=== PATIENT | female | born 1955 | race Caucasian/White ===

== ENCOUNTER → 2018-11-06 10:22 | Outpatient (CLI) | payer BC, SELFPAY ==
--- NOTE | 2018-11-06 10:30 | XR_ITS ---
EXAM: XR lumbar spine min 4V HISTORY: ITS.REASON: LOW BACK PAIN ORDERING PHYSICIAN: Genia Power PATIENT AGE: 63 years COMPARISON: 9 FINDINGS: There is mild lumbar scoliosis convex left measuring 13 degrees. Degenerative disc disease is present in the lower thoracic spine. No fracture or dislocation. No lytic or blastic change. There is facet arthritic change at L5-S1. IMPRESSION: Scoliosis with facet arthritic change at L5-S1 and degenerative disc disease in the lower thoracic spine
== END ==
PROVIDERS: PCP Nurse Practitioner Family; Visit Provider Nurse Practitioner Family
DX: M54.41 Lumbago with sciatica, right side (principal)
CPT/HCPCS: 72110

== ENCOUNTER → 2020-07-06 09:01 | Outpatient (CLI) | payer BC, SELFPAY ==
--- NOTE | 2020-07-06 09:08 | XR_ITS ---
PROCEDURE: XR LUMBAR SPINE MIN 4V CLINICAL INDICATION: SCOLIOSIS,LOW BACK PAIN COMPARISON: CR [id number] XR lumbar spine min 4V from 11/06/2018 FINDINGS: Mild dextroscoliosis. There is degenerative disc disease at T11-T12 and T12-L1 and L1-L2. Mild facet arthritic changes are present on the left at L5-S1. No acute fracture or dislocation. No lytic or blastic change. There is a metallic device overlying the midline of the pelvis inferiorly of unknown etiology. Please correlate with patient's surgical history Other findings:Overall no significant change 11/06/2018. IMPRESSION: Degenerative changes as described above, no acute finding Dictated by: Samuel Zambrano MD 07/06/2020 15:41 Samuel Zambrano MD in [place] 07/06/2020 15:41
== END ==
PROVIDERS: PCP Nurse Practitioner Family; Visit Provider Nurse Practitioner Family
DX: M54.41 Lumbago with sciatica, right side (principal)
CPT/HCPCS: 72110

== ENCOUNTER → 2021-07-18 08:10 | Outpatient (CLI) | payer BC, SELFPAY | PROVIDERS: Visit Provider Nurse Practitioner | DX: Z20.822 Contact with and (suspected) exposure to COVID-19 (principal) | CPT/HCPCS: C9803; U0003; U0005 ==

== ENCOUNTER 2022-02-08 16:45 | Emergency (ER) | payer BC, SELFPAY ==
[2022-02-08 16:55] VITALS: BP 141/88; PULSE 81; RESP 19; TEMP 36.6; O2SAT 98; BMI 16.2
[2022-02-08 17:15] VITALS: BP 141/88; PULSE 81; RESP 19; TEMP 36.6; O2SAT 98
--- NOTE | 2022-02-08 17:17 | HMH.EDUTC ---
[facility] [place] Disposition Clinical Impression: Viral syndrome, Exposure to COVID-19 virus Disposition: Home, Self-Care Condition on Discharge: Good Instructions: DI for Viral Syndrome, DI for COVID-19 (Suspected or Confirmed ), Preventing the Spread of Coronavirus Discharge Instructions Additional Instructions: Drink plenty of fluids. Take tylenol or ibuprofen for pain or fever. Take the medications as directed. Follow up with your regular doctor. GO TO THE ER FOR ANY WORSENING SYMPTOMS Prescriptions: Ondansetron [Zofran 4mg ODT] 4 mg PO Q8HP PRN #20 tab PRN Reason: Nausea Transmission Status: Received by [facility] # Benzonatate [Benzonatate 100mg cap] 100 mg PO TIDP PRN #30 cap PRN Reason: Cough Transmission Status: Received by [facility] # Referrals: Genia Powre APRN [Primary Care Provider] - Forms: Work/School Release Time of Disposition: 17:19 Medical Decision Making - Medical Records Medical records reviewed: No: I reviewed the patient's medical records. - [place] Inquiry Pt receiving controlled substance: No Vital Signs: 02/08/22 16:55 02/08/22 17:15 Temperature 97.8 F 97.8 F Temperature Source Oral Pulse Rate 81 Pulse Rate [Right Brachial] 81 Respiratory Rate 19 19 Blood Pressure 141/88 H Blood Pressure [Right Arm] 141/88 H Blood Pressure Mean [Right Arm] 105 Blood Pressure Source [Right Arm] Automatic Cuff Blood Pressure Position [Right Arm] Sitting 02 Sat by Pulse Oximetry 98 Oxygen Delivery Method Room Air Orders (Tests/Meds): ORDERS Category Date Time Status Covid-19 Nasal PCR ([facility]) Routine Lab 02/08/22 17:04 Received [facility] [place] HPI - General Stated complaint: covid test don't feel good Time Seen by Provider: 02/08/22 17:00 Mode of Arrival: Ambulatory Source of Information: Patient Limitations: No Limitations Description of Symptoms (Recalled from Triage Doc. by RN): PATIENT C/O SINUS PRESSURE X 2 DAYS. RECENTLY EXPOSED TO COVID HEENT Symptoms (Recalled from RN notes): Yes Resp Symptoms (Recalled from RN notes): No Skin Symptoms (Recalled from RN notes): No MS Symptoms (Recalled from RN notes): No Functional Status (Recalled from RN notes): WNL - History of Present Illness Provider Complaint: She states that she started to feel bad all of a sudden this morning. She has had body aches, chills, runny nose, nausea and she has felt bad. She denies fever but she has been at work and could not check her temp. She has been exposed to covid-19 by several of her coworkers having covid. - Related Data Previous Rx's Medication Instructions Recorded Benzonatate [Benzonatate 100mg 100 mg PO TIDP PRN #30 cap 02/08/22 cap] Ondansetron [Zofran 4mg ODT] 4 mg PO Q8HP PRN #20 tab 02/08/22 Allergies Allergy/AdvReac Type Severity Reaction Status Date / Time No Known Allergies Allergy Verified 02/08/22 17:11 - Worker's Comp Is this a Worker's Comp case?: No [facility] History - Hepatitis A Screen Attestation statement:: This patient has been screened for Hepatitis A risk factors. I have reviewed the patient's past medical history: Yes ROS Obtained: Yes All systems reviewed & no additional complaints - Constitutional Constitutional: Reports body ache, Reports chills, Denies fever(s), Reports poor appetite, Reports malaise - Eyes Eyes: Denies eye discharge - ENT Ears, Nose, Mouth, and Throat: Denies dizziness, Denies otalgia, Reports sore throat - Cardiovascular Cardiovascular: Denies chest pain - Respiratory Respiratory: Denies chest congestion, Reports cough, Denies dyspnea, Denies stridor, Denies wheezing - Gastrointestinal Gastrointestingal: Reports: nausea. Denies: abdominal pain, cramping, diarrhea, vomiting - Musculoskeletal Musculoskeletal: Denies joint pain - Integumentary/Breasts Skin/Breast: Denies rash Physical Exam - General General appearance: alert, in no appa
== END 2022-02-08 17:20 | disposition home or self-care (01) ==
PROVIDERS: Emergency Provider Nurse Practitioner Family; PCP Nurse Practitioner Family
DX: Z20.822 Contact with and (suspected) exposure to COVID-19 (principal); B34.9 Viral infection, unspecified; R09.89 Other specified symptoms and signs involving the circulatory and respiratory systems
CPT/HCPCS: 99212; C9803; G0463; U0003; U0005

== ENCOUNTER 2022-08-01 07:59 | Emergency (ER) | payer BC, SELFPAY ==
[2022-08-01 08:05] VITALS: BP 206/104; PULSE 88; RESP 18; TEMP 36.7; O2SAT 97; BMI 17.7
--- NOTE | 2022-08-01 08:26 | EXP.UTC ---
Discharge Plan Disposition Patient Disposition: Still a Patient Condition: Good Prescriptions Prescriptions: No Action benzonatate 100 MG capsule 100 mg PO TIDP PRN (Reason: Cough) Qty: 30 0RF ondansetron 4 MG tablet,disintegrating 4 mg PO Q8HP PRN (Reason: Nausea) Qty: 20 0RF Referrals Follow up/Referrals: Papa Wu MD [Staff Physician] - See instructions Provider,MD Koko [Primary Care Provider] - See instructions Clinical Impressions Clinical Impression: Hypertension Stand Alone Forms Stand Alone Forms: Work/School Release Instructions Patient Instructions: Essential Hypertension Discharge ED Provider: Dg Chandler [facility] HPI <Barbara Orr APRN - Last Filed: 08/01/22 20:35> General Chief complaint: Recheck/Abnormal Lab/Rx Stated complaint: High BP, Headache, lightheaded Time Seen by Provider: 08/01/22 08:26 History of Present Illness Provider Complaint: Patient states that she had High blood pressure years ago and it has been awhile since she was on medication for it State that she has hx of Retinal Detachment and has been having blurry vision in her right eye and they did lasik surgery on the eye yesterday and they found her blood pressure to be elevated State that she has been having headache and feeling light headed states that she went to work this morning and was not feeling well and still having headache and light headedness so they sent her home and told her she had to come to ER Related Data Previous Rx's Medication Instructions Recorded benzonatate 100 mg capsule 100 mg PO TIDP PRN Cough #30 caps 02/08/22 ondansetron 4 mg disintegrating 4 mg PO Q8HP PRN Nausea #20 tabs 02/08/22 tablet Allergies Allergy/AdvReac Type Severity Reaction Status Date / Time No Known Allergies Allergy Verified 02/08/22 17:11 [facility] <Barbara Orr APRN - Last Filed: 08/01/22 20:35> [facility] Disclaimer: The information contained in this section may have been updated after the patient was seen, as this information can be updated by other users. Medical History Detached retina Hypertension Surgical History H/O laser photocoagulation of retina Social History (Updated 08/01/22 @ 09:40 by Dg Chandler MD) Smoking Status: Unknown if ever smoked alcohol intake: never current occupational status: other Travel in the last 8 weeks: None <Barbara Orr APRN - Last Filed: 08/01/22 20:35> ROS Obtained: Yes All systems reviewed & no additional complaints except as documented and Yes Systems reviewed as appropriate & no additional complaints except as documented Constitutional Constitutional: Reports system reviewed and no additional complaints, except as documented, Reports as per HPI and Reports headache(s) Eyes Eyes: Reports system reviewed and no additional complaints, except as documented and Reports as per HPI ENT Ears, Nose, Mouth, and Throat: Reports system reviewed and no additional complaints, except as documented, Reports as per HPI and Reports headache(s) Cardiovascular Cardiovascular: Reports system reviewed and no additional complaints, except as documented, Reports as per HPI and Denies chest pain Neurologic Neurologic: Reports system reviewed and no additional complaints, except as documented, Reports as per HPI, Reports headache(s) and Reports other (light headedness on and off) Physical Exam <Barbara Orr APRN - Last Filed: 08/01/22 20:35> General General appearance: alert and in no apparent distress Respiratory Respiratory exam: Present normal lung sounds bilaterally; Absent respiratory distress Cardiovascular Cardiovascular exam: Present regular rate, normal rhythm and normal heart sounds Neurological Exam Neurological exam: Present alert, oriented X3 and normal gait Medical Decision Making <Barbara Orr APRN - Last Filed: 08/01/22 20:35> [facility]
--- NOTE | 2022-08-01 08:31 | PC.NURSE ---
PATIENT SENT TO ER PER Lily TAVAREZ APRN FOR FURTHER EVALUATION. REPORT GIVEN TO Isis JARAMILLO RN
[2022-08-01 08:38] VITALS: BP 187/102; PULSE 87; RESP 17; TEMP 36.7; O2SAT 97; BMI 17.4
--- NOTE | 2022-08-01 08:43 | PC.NURSE ---
DR HUDSON AT BEDSIDE
--- NOTE | 2022-08-01 08:47 | HMH.EDGENADL ---
Discharge Plan Disposition Patient Disposition: Still a Patient Condition: Good Prescriptions Prescriptions: No Action benzonatate 100 MG capsule 100 mg PO TIDP PRN (Reason: Cough) Qty: 30 0RF ondansetron 4 MG tablet,disintegrating 4 mg PO Q8HP PRN (Reason: Nausea) Qty: 20 0RF Referrals Follow up/Referrals: Provider,Referral, [Primary Care Provider] - See instructions Discharge ED Provider: Dg Chandler General Adult HPI General Chief complaint: Recheck/Abnormal Lab/Rx Stated complaint: High BP, Headache, lightheaded Time Seen by Provider: 08/01/22 08:26 Mode of Arrival: Ambulatory Limitations: No Limitations Description of Symptoms (Recalled from ER Triage Doc. by RN): PT SENT FROM [facility] FOR FURTHER EVALUATION OF HYPERTENSION. PT REPORTS HIGH BLOOD PRESSURE YESTERDAY WHILE HAVING A PROCEDURE TO EYE. REPORTS HIGH BLOOD PRESSURE IN PAST, DENIES ANY HOME MEDICATION. REPORTS LIGHTHEADED History of Present Illness HPI narrative: 67-year-old female,, no significant past medical issues, had not had known documented history of high blood pressure, never on any antihypertensives. Does not currently have a PCP although she has an appointment set up for tomorrow to establish care. She was seen yesterday for retinal surgery which was completed, at that time it was noted that her blood pressure was elevated. She denies any real symptoms, does states she occasionally has headaches particularly when waking up in the morning although usually with ibuprofen improves, and does not rated as severe, does not have any associated visual changes other than what she had with a retinal issue. She denies any nausea, vomiting, chest pain, shortness of breath, leg swelling, palpitations or any other symptoms. She was noted to have a systolic pressure of 207 on arrival here although its improved spontaneously to the 180s without any treatment thus far. Related Data Previous Rx's Medication Instructions Recorded benzonatate 100 mg capsule 100 mg PO TIDP PRN Cough #30 caps 02/08/22 ondansetron 4 mg disintegrating 4 mg PO Q8HP PRN Nausea #20 tabs 02/08/22 tablet Allergies Allergy/AdvReac Type Severity Reaction Status Date / Time No Known Allergies Allergy Verified 02/08/22 17:11 [facility] Disclaimer: The information contained in this section may have been updated after the patient was seen, as this information can be updated by other users. Medical History Detached retina Hypertension Surgical History H/O laser photocoagulation of retina Social History Smoking Status: Unknown if ever smoked alcohol intake: never ROS Obtained: Yes Systems reviewed as appropriate & no additional complaints except as documented Constitutional Constitutional: Reports system reviewed and no additional complaints, except as documented Eyes Eyes: Reports system reviewed and no additional complaints, except as documented ENT Ears, Nose, Mouth, and Throat: Reports system reviewed and no additional complaints, except as documented Cardiovascular Cardiovascular: Reports system reviewed and no additional complaints, except as documented Respiratory Respiratory: Reports system reviewed and no additional complaints, except as documented Gastrointestinal Gastrointestingal: Reports system reviewed and no additional complaints, except as documented Genitourinary Female Genitourinary: Reports system reviewed and no additional complaints, except as documented Musculoskeletal Musculoskeletal: Reports system reviewed and no additional complaints, except as documented Integumentary/Breasts Skin/Breast: Reports system reviewed and no additional complaints, except as documented Neurologic Neurologic: Reports system reviewed and no additional complaints, except as documented Endocrine Endocrine: Repo
--- NOTE | 2022-08-01 08:59 | ECG_ITS ---
APPROVED REPORT Exam: Resting ECG HR:81 bpm ECG Measurements Heart Rate 81 AXES LA 126 P 79 QRSd 93 QRS 48 QT 356 T 71 QTc 393 Conclusion SINUS RHYTHM NORMAL ECG UNCONFIRMED REPORT Electronically signed by : Garfield Mustafa MD 08/01/2022 21:31:37
[2022-08-01 09:04] LABS: Basophils # 0.2 K/mm3 (0-0.2); Basophils % 1.6 % (0.1-2.0); Eosinophils # 0.1 K/mm3 (0.0-0.4); Eosinophils % 0.8 % (0.1-12.0); Hematocrit 51.5 % (37.0-47.0); Hemoglobin 16.1 g/dL (12.2-16.2); Lymphocytes # 2.1 K/mm3 (0.7-4.5); Lymphocytes % 19.5 % (10-50); Mean Corpuscular HGB Conc 31.4 g/dL (31.8-35.4); Mean Corpuscular Hemoglobin 29.1 pg (27.0-31.2); Mean Platelet Volume 8.6 fl (7.4-10.4); Monocytes # 0.6 K/mm3 (0.1-1.0); Monocytes % 5.7 % (1.7-9.3); Neutrophils # 7.9 K/mm3 (1.8-7.8); Neutrophils % 72.4 % (37.0-80.0); Platelet Count 409 K/mm3 (142-424); Red Blood Count 5.54 M/mm3 (4.20-5.40); White Blood Count 10.9 K/mm3 (4.8-10.8)
[2022-08-01 09:14] LABS: Chloride 106 mmol/L (98-107); Potassium 3.9 mmoL/L (3.5-5.1); Sodium 139 mmol/L (136-145)
[2022-08-01 09:16] LABS: Alanine Aminotransferase 14 U/L (12-78); Aspartate Amino Transferase 27 U/L (14-36); Blood Urea Nitrogen 18 mg/dl (7-17); Creatinine Clearance Estimated 42 mL/min (50-200); Estimated Glomerular Filt Rate 72 ml/min (>60); GFR (African American) 87 ML/MIN (>60)
[2022-08-01 09:17] LABS: Albumin Level 4.6 g/dl (3.5-5.0); Albumin/Globulin Ratio 1.6 (1.1-1.8); Alkaline Phosphatase 105 U/L (38-126); Anion Gap 7.9 mEq/L (5-15); Bilirubin,Total 0.4 mg/dl (0.2-1.3); Calcium 10.1 mg/dl (8.4-10.2); Carbon Dioxide 29 mmol/L (22.0-30.0); Globulin 2.8 g/dL (1.3-3.2); Glucose 97 mg/dl (74-100); Total Protein,Serum 7.4 g/dl (6.3-8.2)
[2022-08-01 09:26] LABS: NT Pro Brain Natriuretic Pep. 107 pg/mL (0-125)
[2022-08-01 09:30] LABS: Troponin I < 0.01 ng/ml (0.00-0.034)
[2022-08-01 09:47] VITALS: BP 173/87; PULSE 77; PULSE 80; RESP 17; TEMP 36.4; TEMP 36.6; O2SAT 98
[2022-08-02 18:36] LABS: Chol/HDL Ratio 4.2 (1-3.5); Cholesterol 233 mg/dl (140-200); HDL Cholesterol 55 mg/dl (40-60); Triglycerides 135 mg/dl (30-150); VLDL Cholesterol 27 mg/dL (0-40)
[2022-08-02 18:47] LABS: Direct LDL Cholesterol 144.21 mg/dL (100-129)
[2022-08-02 19:07] LABS: Thyroid Stimulating Hormone 2.95 uIU/mL (0.465-4.68)
== END 2022-08-01 09:50 | disposition still patient (30) ==
LOC: UTC 08:01 → ER 08:33
PROVIDERS: Nurse Practitioner Family; Emergency Provider Emergency Medicine
DX: I10 Essential (primary) hypertension (principal)
CPT/HCPCS: 80053; 80061; 83880; 84443; 84484; 85025; 93005; 99283

== ENCOUNTER → 2022-08-08 10:47 | Outpatient (CLI) | payer BC, SELFPAY | PROVIDERS: PCP Nurse Practitioner Family; Visit Provider Nurse Practitioner Family | DX: I10 Essential (primary) hypertension (principal) | CPT/HCPCS: 93306 ==

== ENCOUNTER → 2022-09-12 07:18 | Outpatient (CLI) | payer BC, SELFPAY ==
[2022-09-12 18:30] LABS: Anion Gap 9.2 mEq/L (5-15); Blood Urea Nitrogen 14 mg/dl (7-17); Calcium 9.2 mg/dl (8.4-10.2); Carbon Dioxide 26 mmol/L (22.0-30.0); Chloride 108 mmol/L (98-107); Estimated Glomerular Filt Rate 100 ml/min (>60); GFR (African American) 121 ML/MIN (>60); Glucose 92 mg/dl (74-100); Potassium 4.2 mmoL/L (3.5-5.1); Sodium 139 mmol/L (136-145)
== END ==
PROVIDERS: PCP Nurse Practitioner Family; Visit Provider Nurse Practitioner Family
DX: I10 Essential (primary) hypertension (principal)
CPT/HCPCS: 80048

== ENCOUNTER 2024-03-19 10:11 | Outpatient (CLI) | payer BC, SELFPAY ==
[2024-03-19 17:46] LABS: Coronavirus 19, PCR Not Detected (NotDetected); Influenza A, PCR Not Detected (NotDetected); Influenza B, PCR Not Detected (NotDetected)
[2024-03-19 17:56] LABS: Basophils # 0.1 K/mm3 (0-0.2); Basophils % 1.2 % (0.1-2.0); Eosinophils # 0.1 K/mm3 (0.0-0.4); Eosinophils % 1.1 % (0.1-12.0); Hematocrit 49.4 % (37.0-47.0); Hemoglobin 15.6 g/dL (12.2-16.2); Lymphocytes # 2.4 K/mm3 (0.7-4.5); Lymphocytes % 24.4 % (10-50); Mean Corpuscular HGB Conc 31.7 g/dL (31.8-35.4); Mean Corpuscular Hemoglobin 29.3 pg (27.0-31.2); Mean Corpuscular Volume 92.5 fl (81-99); Mean Platelet Volume 10.1 fl (7.4-10.4); Monocytes # 0.6 K/mm3 (0.1-1.0); Monocytes % 6.2 % (1.7-9.3); Neutrophils # 6.5 K/mm3 (1.8-7.8); Neutrophils % 67.1 % (37.0-80.0); Platelet Count 383 K/mm3 (142-424); Red Blood Count 5.33 M/mm3 (4.20-5.40); Red Cell Distribution Width 15.3 % (11.5-17.5); White Blood Count 9.7 K/mm3 (4.8-10.8)
[2024-03-19 18:00] LABS: Alanine Aminotransferase 17 U/L (12-78); Albumin Level 4.2 g/dl (3.5-5.0); Albumin/Globulin Ratio 1.6 (1.1-1.8); Alkaline Phosphatase 105 U/L (38-126); Anion Gap 11.2 mEq/L (5-15); Aspartate Amino Transferase 24 U/L (14-36); Bilirubin,Total 0.6 mg/dl (0.2-1.3); Blood Urea Nitrogen 18 mg/dl (7-17); Calcium 10.2 mg/dl (8.4-10.2); Carbon Dioxide 28 mmol/L (22.0-30.0); Chloride 105 mmol/L (98-107); Chol/HDL Ratio 3.5 (1-3.5); Cholesterol 216 mg/dl (140-200); Estimated Glomerular Filt Rate 123 ml/min (>60); GFR (African American) 149 ML/MIN (>60); Globulin 2.7 g/dL (1.3-3.2); Glucose 104 mg/dl (74-100); HDL Cholesterol 62 mg/dl (40-60); Potassium 4.2 mmoL/L (3.5-5.1); Sodium 140 mmol/L (136-145); Total Protein,Serum 6.9 g/dl (6.3-8.2); Triglycerides 97 mg/dl (30-150); VLDL Cholesterol 19 mg/dL (0-40)
[2024-03-19 18:10] LABS: Direct LDL Cholesterol 125.93 mg/dL (100-129)
[2024-03-19 18:17] LABS: 25-OH Vitamin D, Total 24.3 ng/mL (30-100)
[2024-03-19 18:30] LABS: Thyroid Stimulating Hormone 2.02 uIU/mL (0.465-4.68)
[2024-03-19 18:40] LABS: Hemoglobin A1C 5.1 % (4.0-6.0)
[2024-03-20 09:56] LABS: HIV (1&2) Antibody Rapid NON REACTIVE
[2024-03-21 10:52] LABS: HCV Ab Non Reactive (Non Reactive)
== END 2024-03-19 23:59 | disposition home or self-care (01) ==
LOC: LAB.DROPOF 03-22 10:36
PROVIDERS: PCP Family Medicine; Visit Provider Family Medicine
DX: F17.200 Nicotine dependence, unspecified, uncomplicated (principal); I10 Essential (primary) hypertension; Z11.59 Encounter for screening for other viral diseases; Z11.4 Encounter for screening for human immunodeficiency virus [HIV]; R11.2 Nausea with vomiting, unspecified; R19.7 Diarrhea, unspecified
CPT/HCPCS: 86803; 86703; 80050; 80053; 80061; 82306; 83036; 84443; 85025; 87636

== ENCOUNTER 2024-03-22 15:03 | Outpatient (CLI) | payer BC, SELFPAY ==
--- NOTE | 2024-03-22 15:03 | XR_ITS ---
FINAL REPORT CLINICAL HISTORY: Nonspecific cough COMPARISON: None FINDINGS: No acute pulmonary density is evident. Emphysema is noted. There is no evidence of effusion or other pleural disease. The mediastinum has a normal appearance. The cardiac silhouette is unremarkable. IMPRESSION: Emphysema without acute process Reviewed, Interpreted and Dictated by January Youngblood MD Transcribed by Nury Cardoso Authenticated and [facility]
== END 2024-03-22 23:59 | disposition home or self-care (01) ==
LOC: RAD 15:03
PROVIDERS: PCP Nurse Practitioner Family; Visit Provider Family Medicine
DX: R05.9 Cough, unspecified (principal); J43.9 Emphysema, unspecified; F17.210 Nicotine dependence, cigarettes, uncomplicated
CPT/HCPCS: 71046

== ENCOUNTER 2024-04-06 06:08 | Outpatient (CLI) | payer BC, SELFPAY ==
--- NOTE | 2024-04-06 | CA_ITS ---
APPROVED REPORT Exam: Pharmacologic Technologist: Emilee Mathis Ht: 5 ft 5 in Wt: 94 lbs BSA: 1.43 m2 HR: 78 bpm BP: 159/89 mmHg Rhythm: NSR Indications: Angina Medical History Medications: Lisinopril,,,,, Albuterol,,,,, ONdansetron,,,,, Stress Test Details Test: LEXISCAN HR Resting HR: 89 bpm Max Heart Rate (APMHR): 153 bpm Max HR Achieved: 118 bpm Target HR (85% APMHR): 130 bpm % of APMHR: 77 Recovery HR: 94 bpm BP Resting BP: 159.0/89.0 mmHg Max BP: 210.0/130.0 mmHg Recovery BP: 175.0/100.0 mmHg ECG Resting ECG: Sinus rhythm Stress ECG: No significant ST changes Arrhythmia: PVCs Clinical Exercise duration: 04:00 min Highest Stage Achieved: Exercise capacity: 1.0 METs Stress ECG Conclusion Symptoms: Nausea, headache Arrhythmias/Ectopy: PVC ST-T Changes: No significant ST changes Conclusion: EKG portion unremarkable due to Lexiscan infusion. Myoview images reported separately. Test Summary REST . . . . . . . Resting REST 14:36 . . 89 . 159/ 89 . . Stage 1 . . . . . . . Myoview Injected Stage 1 01:00 . . 106 . . . . Stage 2 01:00 . . 112 . 203/129 . . Stage 3 01:00 . . 106 . 210/130 . . Stage 4 01:00 . . 105 . 179/ 98 . Stop exercise at 04:00 RECOVERY 01:00 . . 103 . 175/ 91 . . RECOVERY 02:00 . . 99 . 175/ 91 . . RECOVERY 03:00 . . 104 . 175/ 91 . . RECOVERY 04:00 . . 98 . 186/ 99 . . RECOVERY 05:00 . . 95 . 192/ 87 . . RECOVERY 06:00 . . 101 . 192/ 87 . . RECOVERY 07:00 . . 91 . 186/102 . . RECOVERY 08:00 . . 92 . 186/102 . . RECOVERY 08:53 . . 91 . 175/100 . . Electronically signed by : Myra Walters MD 04/06/2024 20:08:52
--- NOTE | 2024-04-06 06:28 | NM_ITS ---
APPROVED REPORT Exam: Nuclear Stress Test Indication: SOB, HTN, Tobacco use, Family history Patient Location: Outpatient Stress Tech: Emilee Mathis NM Tech:Ignacia Vallejo, ARRT, RT (R)(N) Ht: 5 ft 0 in Wt: 92 lbs Bra Size: 34B HR: 89 bpm BP: 159/89 mmHg BSA: 1.34 m2 Rhythm: NSR TID: 1.21 History: SOB, HTN, Tobacco use, Family history Procedure: Patient received 0.4 mg of intravenous Lexiscan, resting heart rate 89 bpm, resting blood pressure 159/89 mmHg, with Lexiscan maximum heart rate achieved was 118 bpm which is % of the maximum predicted heart rate and blood pressure was 210/130 mmHg. With Lexiscan, patient denied any complaint of chest pain. Cardiac Stress and Resting SPECT Images: Cardiac Stress and Resting SPECT images were obtained using technetium 99m Myoview 30.2 mCi stress and 10.51 mCi at rest. Resting and stress imaging in supine and prone positions demonstrate medium size, mild, fixed perfusion defect in the septal LV wall. There is also increase in transit ischemic dilatation ratio (TID 1.21), suggestive of possible multivessel disease or balanced ischemia. Gated imaging demonstrates normal global and regional LV systolic function. LVEF is calculated at 63%.. Conclusion: Medium size, mild, fixed perfusion defect in the septal LV wall. There is also increase in transit ischemic dilatation ratio (TID 1.21), suggestive of possible multivessel disease or balanced ischemia. Gated imaging demonstrates normal global and regional LV systolic function. LVEF is calculated at 63%. Of note, the patient had BP as high as 210/130 mmHg during the stress study. BP control is recommended. Electronically signed by : Myra Walters MD 04/06/2024 20:11:17
[2024-04-06] MEDS: ISOTOPE MYOVIEW (PER STUDY) 1 DOSE IV (08:45)
[2024-04-06] MEDS: REGADENOSON 0.4MG/5ML SYRINGE 0.4 MG IV (08:45)
[2024-04-06] MEDS: SODIUM CHLORIDE 0.9% 10ML SYR (RAD ONLY) 10 ML IV ×2 (08:45)
== END 2024-04-06 23:59 | disposition home or self-care (01) ==
LOC: RAD 06:08
PROVIDERS: PCP Nurse Practitioner Family; Visit Provider Family Medicine
DX: I20.89 Other forms of angina pectoris (principal); R06.09 Other forms of dyspnea; R06.02 Shortness of breath; R53.83 Other fatigue; R68.89 Other general symptoms and signs; Z87.891 Personal history of nicotine dependence
CPT/HCPCS: 78452; 93017; 93018; A9502; J2785

== ENCOUNTER 2024-04-21 09:04 | Outpatient (CLI) | payer BC, SELFPAY ==
--- NOTE | 2024-04-21 09:05 | CA_ITS ---
APPROVED REPORT EXAM: Comprehensive 2D, Doppler, and color-flow Echocardiogram Reconciliation Machine Operator: ANDRAE Cage, RVS Ht: 5 ft 6 in Wt: 97lbs BSA: 1.47 BP: 194/80 mmHg Indications: Dyspnea,HTN, Smoker, CP, HLD, Abn EKG Echo Enhancing Agent Comments: Technically limited windows due to body habitus & lung impedence 2D Dimensions Left Atrium 2.71 cm F: 2.7 - 3.8 LA Volume 36.70 mL LA Volume Index 24.619792 mL/m2 (M/F) 16-34 M-Mode Dimensions RVDd 2.99 cm (0.9-2.6) LA Diam 2.94 cm (1.9-4.0) LVDd 3.33 cm (3.5-5.7) LVDs 2.78 cm (3.5-5.7) IVSd 0.72 cm (0.6-1.1) PWd 0.84 cm (0.6-1.1) EF (Teich) 57.80% EPSs 0.29 cm FS 30.00% EDV (Teich) 68.80 mL TAPSE 2.21 (<1.7) ESV (Teich) 29.00 mL LV Diastology E Decel Time 150 (160-240 msec) E/A Ratio 1.34 MED A' 8.50 cm/s LAT A' 5.30 cm/s Aortic Valve RADHA Index 0.97 cm2/m2 AoV Peak Dominic. 131.0 (50-130 cm/s) AO Peak GR. 6.90 mmHg AO Mean GR. 3.00 (<5 mmHg) AO VTI 27.7 (18-25 cm) RADHA (VTI) 1.47 (2.5-4.5 cm2) Mitral Valve MV A Velocity 66.0 (40-130 cm/s) E/A Ratio 1.34 Pulmonary Valve PV Peak Velocity 69.0 (50-150 cm/s) Tricuspid Valve TR P. Velocity 240.00 cm/s RAP Estimate 10.00 mmHg RVSP 33.10 mmHg Left Ventricle The left ventricle is normal size. The left ventricular systolic function is normal. The left ventricular ejection fraction is within the normal range. There is increased LV wall thickness. There is normal LV segmental wall motion. The left ventricular diastolic function is normal. LVEF is 55%. Right Ventricle The right ventricle is normal size. The right ventricular systolic function is normal. Atria The left atrium size is normal. The right atrium size is normal. Aortic Valve The aortic valve opens well. There is no aortic valvular stenosis. Mitral Valve The mitral valve is normal in structure. No evidence of mitral valve stenosis. There is no mitral valve regurgitation noted. Tricuspid Valve Tricuspid valve is grossly normal in structure and function. Mild tricuspid regurgitation. RVP is 20-25 mmHg. Pulmonic Valve The pulmonary valve is normal in structure. Trace pulmonic regurgitation. Great Vessels The aortic root is normal in size. The ascending aorta is not well visualized. IVC is normal in size and collapses >50% with inspiration. Pericardium There is no pericardial effusion. Other Information Study Quality: Fair Conclusion Normal biventricular systolic function. Mild TR. Electronically signed by : Myra Walters MD 04/26/2024 11:47:47
== END 2024-04-21 23:59 | disposition home or self-care (01) ==
LOC: RT 09:05
PROVIDERS: PCP Nurse Practitioner Family; Visit Provider Nurse Practitioner Family
DX: R06.02 Shortness of breath (principal); I20.89 Other forms of angina pectoris; R93.1 Abnormal findings on diagnostic imaging of heart and coronary circulation; R94.31 Abnormal electrocardiogram [ECG] [EKG]; I10 Essential (primary) hypertension; E78.5 Hyperlipidemia, unspecified; Z87.891 Personal history of nicotine dependence
CPT/HCPCS: 93306

== ENCOUNTER 2024-04-27 07:54 | Day surgery (SDC) | payer BC, SELFPAY ==
[2024-04-27] VITALS (13 sets, daily range): BP systolic 120–177; BP diastolic 62–105; PULSE 18–72; RESP 16–19; TEMP 36.7–36.8; O2SAT 93–99; BMI 15.6
--- NOTE | 2024-04-27 07:23 | IR_ITS ---
APPROVED REPORT Patient Location: Outpatient [facility] [employer] D[employer] Car: LELAND Silveira RT (R) PROCEDURES Left heart catheterization Left ventriculogram Selective coronary angiogram INDICATION Abnormal Myoview, Angina pectoris, Numerous risk factors for coronary disease Informed consent was obtained prior to the procedure. COMPLICATIONS None Estimated Blood Loss: Less than 10 mls TECHNIQUE One percent lidocaine used to anesthetize the right anterior aspect of the wrist. The right radial artery was accessed via the Seldinger technique. A 6 Montenegrin sheath was placed in the right radial artery. 2.5 mg of Verapamil, 800 mcg of nitroglycerin, 1mg Lidocaine and 5000 U Heparin were given through the arterial sheath. The papa catheter was also used to perform left heart catheterization, left ventriculogram and selective coronary angiogram. At the end of the procedure the sheath was removed good hemostasis was achieved using Traclet band, patient was transferred to the postop holding area in stable condition. 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 Risk factor modification 2. Medical management Electronically signed by : Mathieu Smith MD 04/27/2024 10:26:10
[2024-04-27 08:33] LABS: Chloride 108 mmol/L (98-107); Potassium 4.4 mmoL/L (3.5-5.1); Sodium 142 mmol/L (136-145)
[2024-04-27 08:36] LABS: Blood Urea Nitrogen 13 mg/dl (7-17); Creatinine Clearance Estimated 38 mL/min (50-200); Estimated Glomerular Filt Rate 83 ml/min (>60); GFR (African American) 101 ML/MIN (>60)
[2024-04-27 08:37] LABS: Anion Gap 5.4 mEq/L (5-15); Calcium 9.3 mg/dl (8.4-10.2); Carbon Dioxide 33 mmol/L (22.0-30.0); Glucose 112 mg/dl (74-100)
[2024-04-27 08:38] LABS: Basophils # 0.1 K/mm3 (0-0.2); Basophils % 0.9 % (0.1-2.0); Eosinophils # 0.2 K/mm3 (0.0-0.4); Eosinophils % 1.7 % (0.1-12.0); Hematocrit 48.6 % (37.0-47.0); Hemoglobin 15.4 g/dL (12.2-16.2); Lymphocytes # 2.3 K/mm3 (0.7-4.5); Lymphocytes % 18.2 % (10-50); Mean Corpuscular HGB Conc 31.6 g/dL (31.8-35.4); Mean Corpuscular Hemoglobin 29.2 pg (27.0-31.2); Mean Corpuscular Volume 92.5 fl (81-99); Mean Platelet Volume 8.6 fl (7.4-10.4); Monocytes # 0.9 K/mm3 (0.1-1.0); Monocytes % 7.1 % (1.7-9.3); Neutrophils # 9.2 K/mm3 (1.8-7.8); Neutrophils % 72.1 % (37.0-80.0); Platelet Count 319 K/mm3 (142-424); Red Blood Count 5.26 M/mm3 (4.20-5.40); Red Cell Distribution Width 15.1 % (11.5-17.5); White Blood Count 12.7 K/mm3 (4.8-10.8)
[2024-04-27] MEDS: NITROGLYCERIN 800MCG/8ML SYR (CATH LAB) 800 MCG IA (09:38)
[2024-04-27] MEDS: diphenhydrAMINE 50MG/ML VIAL 50 MG IV (09:38)
[2024-04-27] MEDS: LIDOCAINE 1% 10ML MDV 20 ML IJ (09:38)
[2024-04-27] MEDS: HEPARIN 1,000 UNITS/ML 10ML VIAL (CATH LAB) 10000 UNIT IV (09:39)
[2024-04-27] MEDS: HEPARIN 1,000 UNITS/500ML NS (CATH LAB) 3000 UNIT IV (09:39)
[2024-04-27] MEDS: VERAPAMIL 2.5MG/ML 2ML VIAL 2.5 MG IV (09:39)
[2024-04-27] MEDS: 0.9 % SODIUM CHLORIDE 500 ML 25 ML IV (09:40)
[2024-04-27] MEDS: MIDAZOLAM 2MG/2ML VIAL 1 MG IV (10:10)
[2024-04-27] MEDS: FENTANYL 100MCG/2ML VIAL 50 MCG IV (10:10)
[2024-04-27] MEDS: IOPAMIDOL-370 (76%);100ML BOTTLE 40 ML IV (13:18)
== END 2024-04-27 13:20 | disposition home or self-care (01) ==
PROVIDERS: PCP Nurse Practitioner Family; Visit Provider Internal Medicine
DX: I25.118 Atherosclerotic heart disease of native coronary artery with other forms of angina pectoris (principal); I10 Essential (primary) hypertension; E78.5 Hyperlipidemia, unspecified; R93.1 Abnormal findings on diagnostic imaging of heart and coronary circulation; F17.210 Nicotine dependence, cigarettes, uncomplicated; R06.02 Shortness of breath; R94.31 Abnormal electrocardiogram [ECG] [EKG]; Z79.899 Other long term (current) drug therapy
CPT/HCPCS: 80048; 85025; 93458; 99152; C1725; C1769; J1200; J1644; J2250; J3010; Q9967

== ENCOUNTER 2025-08-17 15:11 | Outpatient (CLI) | payer BC, SELFPAY ==
--- NOTE | 2025-08-17 15:15 | XR_ITS ---
FINAL REPORT CLINICAL HISTORY: cough, SOB COMPARISON: 03/22/2024 FINDINGS: PA and lateral views of the chest were obtained. The cardiac and mediastinal silhouettes are within normal limits. New lingular, right middle lobe, and left lower lobe airspace disease is concerning for multifocal pneumonia. Underlying emphysema is noted. There is no significant pleural effusion. No pneumothorax. No acute osseous abnormality is identified. IMPRESSION: Bilateral pneumonia. Recommend radiographic follow-up to resolution. Reviewed, Interpreted and Dictated by Mamta Olivia MD Transcribed by Nury Cardoso Authenticated and [facility]
--- OUTSIDE RECORDS SUMMARY | 2025-08-17 16:21 | XMS_ITS | Clinical Summary ---
Author Organization Healthcare Address [address] [place] [address] Care Team Providers Care Digital Service Engineer Name Role Phone Unavailable Primary Care Provider Unavailabl e Social History Tobacco Use Types Packs/Day Years Used Date Smoking Tobacco: Never Assessed Comments Unknown Sex and Gender Information Value Date Recorded Sex Assigned at Not on file Legal Sex Female 1:04 PM EST Gender Identity Not on file Sexual Orientation Not on file Plan of Treatment Health Maintenance Due Date Last Done Comments [facility]-Bone Density Scan 1956 [facility]-Depression Screening 1956 [facility]-/Child/Adol SDOH Screenings 1956 [facility]- SDOH Screenings 1974 [facility]-Adult SDOH Screenings 1974 [facility]-DTaP,Tdap,and Td Vaccine s (1 - Tdap) 1975 CT Colonography 2001 Colonoscopy 2001 FIT-DNA 2001 FIT 2001 FOBT 2001 Sigmoidoscopy 2001 [facility]-Colorectal Cancer Screening 2001 [facility]-Pneumococcal Vaccine: 50 + Years (1 of 1 - PCV) 2006 [facility]-Zoster Vaccines (1 of 2) 2006 SON-ZPZOW-12 Vaccine (3 - 2024- season) 2025 08/03/2021, 11/08/2020 [facility]-Influenza Vaccine (#1) 2025 [facility]-RSV Vaccine: 60+ Years o r (1 - 1-dose 75+ series) 2031 HPV Vaccines (No Doses Required) Completed [facility]-HIB Vaccines Aged Out No longer e ligible based on patient's age to complete this topic [facility]-Hepatitis A Vaccines Aged Out No longer eligible based on patient's age to complete this topic [facility]-IPV Vaccines Aged Out No longer e ligible based on patient's age to complete this topic [facility]-Rotavirus Vaccines Aged Out No lo nger eligible based on patient's age to complete this topic
== END 2025-08-17 23:59 | disposition home or self-care (01) ==
LOC: RAD 15:13
PROVIDERS: PCP Nurse Practitioner Family; Visit Provider Student in an Organized Health Care Education/Training Program
DX: J18.9 Pneumonia, unspecified organism (principal)
CPT/HCPCS: 71046

== ENCOUNTER 2025-08-22 10:00 | Outpatient (CLI) | payer BC, SELFPAY ==
--- NOTE | 2025-08-22 10:03 | XR_ITS ---
FINAL REPORT CLINICAL HISTORY: shortness of breath pt states she has/had pneumonia COMPARISON: 08/17/2025 FINDINGS: PA and lateral views of the chest were obtained. Bibasilar opacities compatible with pneumonia are similar to the prior study. Disease is greater on the left as demonstrated on the prior exam. Underlying emphysema is noted. There are no pleural effusions. The mediastinum has a normal appearance. The cardiac silhouette is unremarkable. IMPRESSION: Stable bibasilar pneumonia. Reviewed, Interpreted and Dictated by January Youngblood MD Transcribed by Nury Cardoso Authenticated and [facility]
--- OUTSIDE RECORDS SUMMARY | 2025-08-22 10:03 | XMS_ITS | Clinical Summary ---
Author Organization Healthcare Address [address] [place] [address] Care Team Providers Care Software Test Engineer Name Role Phone Unavailable Primary Care [...] 2006 [facility]-Zoster Vaccines (1 of 2) 2006 [id number] Vaccine (3 - 2024- season) 2025 08/03/2021, [...]
== END 2025-08-22 23:59 ==
LOC: RAD 10:01
PROVIDERS: PCP Nurse Practitioner Family; Visit Provider Student in an Organized Health Care Education/Training Program
DX: J18.9 Pneumonia, unspecified organism (principal); J43.9 Emphysema, unspecified
CPT/HCPCS: 71046